=== PATIENT | female | born 1990 | race Caucasian/White ===

== ENCOUNTER 2016-12-05 22:26 | Emergency (ER) | payer MEDICAID, OTHER ==
[~2016-12-05] VITALS: Ht 170.2 cm; Wt 84.1 kg
[2016-12-05 22:37] VITALS: Ht 170.2 cm; Wt 84.1 kg
[2016-12-06] MEDS ORDERED: AZITHROMYCIN 250 MG TAB PO ONE (00:30)
[2016-12-06] MEDS ORDERED: CEFTRIAXONE 250 MG INJ IM ONE (00:30)
[2016-12-06] MEDS ORDERED: CLOTRIMAZOLE 1% 45 GM VAG CR VAG ONE (01:00)
[2016-12-06] MEDS ORDERED: MICO24CM3 VAG (01:34)
--- NOTE | 2016-12-06 01:41 | ERD ---
ER Documentation Chief Complaint Chief Complaint vaginal itchiness w/ yellow green discharges HPI This is a 26-year-old female presents to the ER with vaginal yellow-green discharge and vaginal itchiness was started yesterday. Her partner has similar symptoms. Patient denies any urinary frequency or dysuria. She denies any fevers or chills. She denies any pelvic pain. ROS 12 point review of systems was done, all negative except per HPI. Medications Home Meds Active Scripts Miconazole Nitrate* (Monistat 3*) 24 Gm Cmb.pf.crm, 1 APPFUL VAG HS for 3 Days, TUB X 3 Prov:NARESH HOROWITZ C 12/06/16 Allergies Allergies: Coded Allergies: No Known Allergy (Unverified , 12/06/16) PMhx/Soc Medical and Surgical Hx: pt denies Medical Hx, pt denies Surgical Hx History of Surgery: No Anesthesia Reaction: No Hx Neurological Disorder: No Hx Respiratory Disorders: No Hx Cardiac Disorders: No Hx Psychiatric Problems: No Hx Miscellaneous Medical Probl: No Hx Alcohol Use: Yes Hx Substance Use: No Hx Tobacco Use: Yes Smoking Status: Current every day smoker Physical Exam Vitals Vital Signs Date Time Temp Pulse Resp B/P Pulse Ox O2 Delivery O2 Flow Rate FiO2 12/05/16 22:37 97.8 61 20 129/85 100 Physical Exam GENERAL: The patient is well developed and appropriate for usual state of health , in no apparent distress. HEENT: Atraumatic. . CHEST: Clear to auscultation bilaterally. There are no rales, wheezes or rhonchi. HEART: Regular rate and rhythm. No murmurs, clicks, rubs or gallops. : yellow vaginal discharge, no cervical motion tenderness, negative chandilier sign NEURO: Alert and oriented Results 24 hrs Laboratory Tests Test 12/06/16 00:15 12/06/16 00:36 Urine Color YELLOW Urine Clarity SLIGHTLY CLOUDY Urine pH 5.0 Urine Specific [place] 1.029 Urine Ketones NEGATIVEmg/dL Urine Nitrite NEGATIVEmg/dL Urine Bilirubin NEGATIVEmg/dL Urine Urobilinogen 1+mg/dL Urine Leukocyte Esterase NEGATIVELeu/ul Urine Microscopic RBC 2/HPF Urine Microscopic WBC 3/HPF Urine Squamous Epithelial Cells FEW/HPF Urine Calcium Oxalate Crystals MANY/HPF Urine Bacteria FEW/HPF Urine Mucus MANY/HPF Urine Hemoglobin NEGATIVEmg/dL Urine Glucose NEGATIVEmg/dL Urine Total Protein NEGATIVEmg/dl Urine Test NEGATIVE Bedside Urine pH (LAB) 5.5 Bedside Urine Protein (LAB) Trace Bedside Urine Glucose (UA) Negative Bedside Urine Ketones (LAB) Negative Bedside Urine Blood Negative Bedside Urine Nitrite (LAB) Negative Bedside Urine Leukocyte Esterase (L Negative Current Medications Medications (Trade) Dose Ordered Sig/Andi Route PRN Reason Start Time Stop Time Status Last Admin Dose Admin Ceftriaxone Sodium (Rocephin) 250 mg ONCE ONCE IM 12/06/16 00:30 12/06/16 00:31 DC 12/06/16 00:40 Azithromycin (Zithromax) 1,000 mg ONCE ONCE PO 12/06/16 00:30 12/06/16 00:31 DC 12/06/16 00:40 Clotrimazole (Clotrim 1% Vaginal Cr) 1 applic ONCE ONCE VAG 12/06/16 01:00 12/06/16 01:01 DC Procedures/MDM This is a 26-year-old female presents to the ER with vaginal yellow-green discharge. Her partner presents with similar symptoms, specifically an STD. There is no evidence of urinary tract infection. Suspicion for PID is low. Denies any pelvic pain she does not have any cervical motion tenderness is afebrile and well-appearing. Patient will be treated for a potential yeast infection she does have vaginal itchiness. Patient is to follow-up with her primary care doctor within 1-2 days return to ER sooner if symptoms worsen. My medical decision making shared with the patient she understands and agrees with plan. Departure Diagnosis: Primary Impression: Vaginal discharge Condition: Stable Patient Instructions: Understanding STDs Additional Instructions: Call your primary care doctor TOMORROW for an appointment during the next 1-2 days.See the doctor sooner or return here if your condition worsens before your appointment time. NARESH HOROWITZ Dec 06, 2016 01:41
== END 2016-12-06 02:13 | disposition home or self-care (01) ==
LOC: FTE 22:26
DX: N89.8 Other specified noninflammatory disorders of vagina (principal); F17.210 Nicotine dependence, cigarettes, uncomplicated
CPT/HCPCS: 81001; 84703; 87591; 96372; J0696; Z7502; Z7610; 81003

== ENCOUNTER 2017-04-28 12:26 | Emergency (ER) | END 2017-04-28 14:06 | disposition left against medical advice (07) ==

== ENCOUNTER 2018-02-11 13:00 | Emergency (ER) | payer OTHER ==
[~2018-02-11] VITALS: Wt 73.2 kg
[~2018-02-11 13:00] MED LIST: MICO24CM3 VAG
[2018-02-11] MEDS ORDERED: HYDROCODONE/APAP (5/325) TAB PO ONE (17:00)
[2018-02-11] MEDS ORDERED: LIDOCAINE 2% (MDV) 20 ML INJ INJ ONE (17:00)
[2018-02-11] MEDS ORDERED: CEPH-443 PO (17:40)
[2018-02-11] MEDS ORDERED: SULF1TAB31 PO (17:40)
[2018-02-11] MEDS ORDERED: IBUP-1542 PO (17:40)
--- NOTE | 2018-02-12 02:20 | ERD ---
ER Documentation Chief Complaint Chief Complaint ABCESS ON LEFT POSTERIOR ARM X2 DAYS HPI 27-year-old female patient who is an IV drug user and has hepatitis C presents to the ED complaining of a left posterior arm abscess that started 3 weeks ago but worsened in the last 2 days. Patient reports that she started noticing more swollen and more warm. Reports the last time she used IV drugs, was 1 week ago, meth. Patient reports no fever. Denies any chest pain, shortness of breath, nausea, vomiting. ROS All systems reviewed and are negative except as per history of present illness. Medications Home Meds Active Scripts Ibuprofen* (Motrin*) 600 Mg Tab, 600 MG PO Q6, #30 TAB Prov:KEVIN OSORIO-C 02/11/18 Cephalexin* (Keflex*) 500 Mg Capsule, 500 MG PO QID for 7 Days, CAP Prov:KEVIN OSORIO-C 02/11/18 Sulfamethoxazole/Trimethoprim* (Bactrim Ds* Tablet) 1 Each Tablet, 1 TAB PO BID for 7 Days, #14 TAB Prov:KEVIN OSORIO-C 02/11/18 Miconazole Nitrate* (Monistat 3*) 24 Gm Cmb.pf.crm, 1 APPFUL VAG HS for 3 Days, TUB X 3 Prov:NARESH HOROWITZ 12/06/16 Allergies Allergies: Coded Allergies: No Known Allergy (Unverified , 12/06/16) PMhx/Soc History of Surgery: No Anesthesia Reaction: No Hx Neurological Disorder: No Hx Respiratory Disorders: No Hx Cardiac Disorders: No Hx Psychiatric Problems: No Hx Miscellaneous Medical Probl: No Hx Alcohol Use: Yes Hx Substance Use: No Hx Tobacco Use: Yes Smoking Status: Current every day smoker FmHx Family History: No diabetes, No coronary disease Physical Exam Vitals Vital Signs Date Temp Pulse Resp B/P (MAP) Pulse Ox O2 O2 Flow FiO2 Time Delivery Rate 02/11/18 97.2 80 16 132/62 100 13:10 (85) Physical Exam Const: Gir-gcu-zoguduruy, well-nourished. In no acute distress. Head: Atraumatic, normocephalic Eyes: Normal Conjunctiva without injection ENT: Normal external ear, nose and mouth. Neck: Full range of motion. No meningismus. Resp: Clear to auscultation bilaterally. No wheezing, rhonchi, rales, or crackles. No accessory muscle use. No retractions. Cardio: Regular rate and rhythm, no murmurs Skin: No petechiae or rashes Back: No midline tenderness. No CVA tenderness. Ext: No cyanosis, or edema. Cap refill less than 2 seconds. Distal pulses intact bilaterally. 3 cm abscess with surrounding erythema noted of the dorsal aspect of patient's left arm. Full range of motion of the bilateral elbows without any difficulty with supination, pronation, flexion and extension. Neur: Awake and alert. Normal gait and coordination. Muscle strength 5/5. Sensation intact bilaterally. Psych: Normal Mood and Affect Results 24 hrs Current Medications Medications Dose Sig/Andi Start Time Status Last (Trade) Ordered Route PRN Stop Time Admin Dose Reason Admin Lidocaine 20 ml ONCE ONCE 02/11/18 DC (Xylocaine INJ 17:00 02/11/18 2% (Mdv) 20 17:02 ml) 1 tab ONCE ONCE 02/11/18 DC 02/11/18 Acetaminophen PO 17:00 02/11/18 16:52 / 17:02 Hydrocodone Bitart ([place] (5/325)) Procedures/MDM 27-year-old female patient with with a past medical history of hepatitis C, IV drug use presents to ED complaining of left arm abscess. Patient is afebrile and nontoxic-appearing. Patient gave consent to perform incision and drainage. 11 blade scalpel used to make a small incision. Abscess Incision and Drainage with irrigation by me: Location: Left arm Anesthesia: [Local 1% Lidocaine] Technique: [Irrigated. Disrupted loculations w/ instrumentation] Packin cm Complications: [Neurovascularly intact post procedure] Copious purulent discharge drained from the abscess. Instructed patient to no longer use IV drugs. Low suspicion for anaphylaxis, scabies, SJS/TEN, TSS, Lyme's Disease, syphilis, RMSF, shingles, disseminated gonorrhea chlamydia, DIC, TTP, ITP, erythema multiforme, sepsis, cellulitis, necrotizing fasciitis, gangrene, meningococcemia, allergic contact dermatitis, urticaria, eczema, tinea infection, or other emergent conditions. Smoking Cessation Therapy: Pt. was lectured for greater than 3 minutes on the health risks of continued smoking and the benefits of cessation. Diagnosis: Abscess Discharge medications: Ibuprofen, Keflex, Bactrim Follow up with primary care physician in 1-2 days. Instructed patient to return to the ED sooner for any worsening symptoms. Patient's questions were answered. Patient is hemodynamically stable. Patient understood and agreed with discharge plan. Patient discharged stable. Disclaimer: Inadvertent spelling and grammatical errors are likely due to EHR/dictation software use and do not reflect on the overall quality of patient care. Also, please note that the electronic time recorded on this note does not necessarily reflect the actual time of the patient encounter. Departure Diagnosis: Primary Impression: Abscess Condition: Stable Patient Instructions: Abscess, Incision And Drainage Referrals: [facility] YOU HAVE RECEIVED A MEDICAL SCREENING EXAM AND THE RESULTS INDICATE THAT YOU DO NOT HAVE A CONDITION THAT REQUIRES URGENT TREATMENT IN THE EMERGENCY DEPARTMENT. FURTHER EVALUATION AND TREATMENT OF YOUR CONDITION CAN WAIT UNTIL YOU ARE SEEN IN YOUR DOCTORS OFFICE WITHIN THE NEXT 1-2 DAYS. IT IS YOUR RESPONSIBILITY TO MAKE AN APPOINTMENT FOR FOLOW-UP CARE. IF YOU HAVE A PRIMARY DOCTOR --you should call your primary doctor and schedule an appointment IF YOU DO NOT HAVE A PRIMARY DOCTOR YOU CAN CALL OUR PHYSICIAN REFERRAL HOTLINE AT IF YOU CAN NOT AFFORD TO SEE A PHYSICIAN YOU CAN CHOSE FROM THE FOLLOWING [facility] [address] [facility]. [facility] [address] [facility] [address] [facility] [address] [facility]. [facility] [address] [facility]. [facility]. [address] [facility]. [facility] YOU HAVE RECEIVED A MEDICAL SCREENING EXAM AND THE RESULTS INDICATE THAT YOU DO NOT HAVE A CONDITION THAT REQUIRES URGENT TREATMENT IN THE EMERGENCY DEPARTMENT. FURTHER EVALUATION AND TREATMENT OF YOUR CONDITION CAN WAIT UNTIL YOU ARE SEEN IN YOUR DOCTORS OFFICE WITHIN THE NEXT 1-2 DAYS. IT IS YOUR RESPONSIBILITY TO MAKE AN APPOINTMENT FOR FOLOW-UP CARE. IF YOU HAVE A PRIMARY DOCTOR --you should call your primary doctor and schedule and appointment IF YOU DO NOT HAVE A PRIMARY DOCTOR YOU CAN CALL OUR PHYSICIAN REFERRAL HOTLINE AT . IF YOU CAN NOT AFFORD TO SEE A PHYSICIAN YOU CAN CHOSE FROM THE FOLLOWING [facility], [facility] INSTITUTIONS: [facility] [address] [place] [address] [facility] [address] [place] [address] [facility] [address] [place] [address] [facility]CIALT[facility] Additional Instructions: Call your primary care doctor TOMORROW for an appointment during the next 2-3 days.See the doctor sooner or return here if your condition worsens before your appointment time. Follow up in 2 days in your clinic for wound check. KEVIN OSORIO PA-C Feb 12, 2018 02:20
== END 2018-02-11 18:07 | disposition home or self-care (01) ==
LOC: FTE 13:00
DX: L02.414 Cutaneous abscess of left upper limb (principal); F17.210 Nicotine dependence, cigarettes, uncomplicated
CPT/HCPCS: 10060; Z7502; Z7610